=== PATIENT | male | born 1980 | race Two or more races ===

== ENCOUNTER 2020-10-02 11:28 | Emergency (ER) | payer OTHER ==
[~2020-10-02 11:28] MED LIST: ADDERALL 20 MG20 MG PO; AMBIEN10 MG PO; ETODOLAC500 MG PO; METOPROLOL TA37.5 MG PO; OMEPRAZOLE40 MG PO; PERCOCET 5-3251 EACH PO; WELLBUTRIN100 MG PO
[2020-10-02 12:33] LABS: BASOPHIL 1.5 % (0-2); EOSINOPHIL 5.2 % (0-5); HCT 47.1 % (42.0-52.0); HGB 16.1 g/dl (13.2-18.0); LYMPHOCYTE 31.9 % (15-48); MCH 30.5 pg (25.0-31.0); MCHC 34.2 g/dL (32.0-36.0); MCV 89.2 fL (78.0-100.0); MONOCYTE 11.1 % (0-12); NRBC 0; PLT 269 K/uL (150-400); RBC 5.28 M/uL (4.70-6.00); RDW 14.3 % (11.5-14.0)
[2020-10-02 12:54] LABS: ALBUMIN 3.7 g/dL (3.4-5.0); ALKALINE PHOSHATASE 76 U/L (46-116); ALT 26 U/L (16-63); AST 27 U/L (15-37); BILIRUBIN - TOTAL 0.3 mg/dL (0.2-1.0); BUN 6 mg/dL (7-18); BUN/CREAT RATIO (CALC) 5.9 RATIO; CHLORIDE 103 mmol/L (98-107); CO2 (BICARBONATE) 25 mmol/L (21-32); CREATININE 1.02 mg/dL (0.67-1.17); GLOBULIN (CALCULATION) 3.6 g/dL; GLUCOSE 107 mg/dL (74-106); POTASSIUM 3.7 mmol/L (3.5-5.1); TOTAL PROTEIN 7.3 g/dL (6.4-8.2)
[2020-10-02] MEDS ORDERED: IBUPROFEN800 MG PO (14:54)
[2020-10-02] MEDS ORDERED: ROBAXIN750 MG PO (14:54)
[2020-10-02] MEDS ORDERED: NORCO 5-325 TA1 EACH PO (14:54)
== END 2020-10-02 15:35 | disposition home or self-care (01) ==
LOC: FER 11:28
PROVIDERS: Emergency Medicine
DX: S33.5XXA Sprain of ligaments of lumbar spine, initial encounter (principal); S00.03XA Contusion of scalp, initial encounter; M50.322 Other cervical disc degeneration at C5-C6 level; I10 Essential (primary) hypertension; F17.210 Nicotine dependence, cigarettes, uncomplicated; W17.89XA Other fall from one level to another, initial encounter
CPT/HCPCS: 36415; 70450; 72125; 72131; 80053; 85025; G0480; J2270; J2405

== ENCOUNTER 2022-01-19 18:40 | Emergency (ER) | payer OTHER ==
[~2022-01-19 18:40] MED LIST changes: +IBUPROFEN800 MG PO; +NORCO 5-325 TA1 EACH PO; +ROBAXIN750 MG PO
[2022-01-19 19:51] LABS: CORONAVIRUS 2019 SARS-COV-2 NEGATIVE (NEGATIVE); INFLUENZA A NAA NEGATIVE (NEGATIVE)
== END 2022-01-19 20:14 | disposition left against medical advice (07) ==
LOC: FER 18:40
PROVIDERS: Physician Assistant
DX: J06.9 Acute upper respiratory infection, unspecified (principal); Z88.0 Allergy status to penicillin; Z88.1 Allergy status to other antibiotic agents; Z53.29 Procedure and treatment not carried out because of patient's decision for other reasons; Z20.822 Contact with and (suspected) exposure to COVID-19
CPT/HCPCS: J1885; U0002